=== PATIENT | male | born 1995 | race Hispanic/Latino ===

== ENCOUNTER 2016-05-31 01:25 | Emergency (ER) | payer OTHER ==
[2016-05-31 01:36] VITALS: BP 126/85
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
[2016-05-31] MEDS ORDERED: TRIPLE ANTIBIOTIC TP ONE (01:51)
[2016-05-31] MEDS ORDERED: MOTRIN PO ONE (01:51)
[2016-05-31] MEDS ORDERED: AUGMENTIN 875 MG PO ONE (01:51)
[2016-05-31] MEDS ORDERED: BOOSTRIX IM ONE (01:51)
== END 2016-05-31 02:52 ==
LOC: EEVIPCON 01:25 → ED 01:25
DX: S31.815A Open bite of right buttock, initial encounter (principal); J45.909 Unspecified asthma, uncomplicated; W54.0XXA Bitten by dog, initial encounter; Y93.9 Activity, unspecified; Y92.9 Unspecified place or not applicable; Y99.9 Unspecified external cause status
CPT/HCPCS: 90471; 90715; 99282; A6250